=== PATIENT | male | born 1945 | race Caucasian/White ===

== ENCOUNTER 2020-07-19 19:37 | Observation (INO) ==
[2020-07-19 20:16] LABS: Basophils # 0.1 10*3/uL (0.0-0.2); Basophils % 1.1 % (0.0-0.8); Eosinophils # 0.4 10*3/uL (0.0-0.87); Eosinophils % 4.6 % (0.00-10.9); Hematocrit 49.2 VOL% (42.0-52.0); Hemoglobin 17.4 GM/DL (14.0-18.0); Immature Granulocytes % 0.4 %; Immature Granulocytes Absolute 0.03 #; Lymphocytes # 1.6 10*3/uL (1.4-4.0); Lymphocytes % 19.3 % (21.2-54.2); Mean Corpuscular HGB Conc 35.4 GM/DL (32-36); Mean Corpuscular Volume 89.9 FL (87-102); Mean Platelet Volume 9.8 FL (9.6-12.0); Monocytes % 7.5 % (1.7-12.7); Neutrophils % 67.1 % (38.7-73.9); Platelet Count 174 T/CUMM (130-400); Red Blood Count 5.47 MC/CUMM (3.8-5.5); White Blood Count 8.4 T/CUMM (4-12)
[2020-07-19 20:29] LABS: Calcium 9.2 MG/DL (8.5-10.1); Osmolality,Calculated 277.4 MOS/KG (273-304); Potassium 4.3 MMOL/L (3.5-5.1)
[2020-07-20 00:15] LABS: INR 1.1; PT Patient Result 11.5 SECS (9.8-11.9); Partial Thromboplastin Time 26.4 SECS (23.9-33.8)
[2020-07-20] MEDS ORDERED: PROMETHAZINE 25 MG TABLET PO PRN (00:47)
[2020-07-20] MEDS ORDERED: SIMETHICONE CHEW 125 MG TABLET PO PRN (00:47)
[2020-07-20] MEDS ORDERED: ZALEPLON 5 MG CAPSULE PO PRN (00:47)
[2020-07-20] MEDS ORDERED: BISACODYL 5 MG TABLET PO PRN (00:47)
[2020-07-20] MEDS ORDERED: ALBUTEROL 2.5 MG/3 ML NEB RESP TX PRN (00:47)
[2020-07-20] MEDS ORDERED: ACETAMINOPHEN 325 MG TABLET PO PRN (00:47)
[2020-07-20] MEDS ORDERED: diphenhydrAMINE CAP 25 MG CAPSULE PO PRN (00:47)
[2020-07-20] MEDS ORDERED: DEXTROSE 50% 25 GM/50 ML VIAL IV PRN (00:47)
[2020-07-20] MEDS ORDERED: NICOTINE 21 MG/24 HR PATCH TRANSDERM PRN (00:47)
[2020-07-20] MEDS ORDERED: GLUCAGON 1 MG VIAL IM PRN (00:47)
[2020-07-20] MEDS ORDERED: ONDANSETRON 4 MG/2 ML VIAL IV PRN (00:47)
[2020-07-20] MEDS ORDERED: MORPHINE 4 MG/1 ML VIAL IV PRN (00:47)
[2020-07-20] MEDS ORDERED: CALCIUM CARBONATE CHEW 500 MG TABLET PO PRN (00:47)
[2020-07-20] MEDS ORDERED: guaiFENesin/DM ER 600-30 MG TABLET PO PRN (00:47)
[2020-07-20] MEDS ORDERED: hydrALAZINE 20 MG/1 ML VIAL IV PRN (00:47)
[2020-07-20] MEDS ORDERED: ALUMINUM/MAGNES/SIMETH MAX STR 30 ML UDCUP PO PRN (00:47)
[2020-07-20] MEDS ORDERED: NITROGLYCERIN SL 0.4 MG TABLET SL PRN (00:51)
[2020-07-20] MEDS ORDERED: ENOXAPARIN 40 MG/0.4 ML SYRINGE SUBCUT SCH (01:00)
[2020-07-20 04:12] LABS: Basophils # 0.1 10*3/uL (0.0-0.2); Basophils % 1.1 % (0.0-0.8); Eosinophils # 0.4 10*3/uL (0.0-0.87); Eosinophils % 4.9 % (0.00-10.9); Hematocrit 44.4 VOL% (42.0-52.0); Hemoglobin 15.3 GM/DL (14.0-18.0); Immature Granulocytes % 0.3 %; Immature Granulocytes Absolute 0.02 #; Lymphocytes # 1.5 10*3/uL (1.4-4.0); Lymphocytes % 19.1 % (21.2-54.2); Mean Corpuscular HGB Conc 34.5 GM/DL (32-36); Mean Corpuscular Volume 91.4 FL (87-102); Mean Platelet Volume 9.8 FL (9.6-12.0); Monocytes % 8.5 % (1.7-12.7); Neutrophils % 66.1 % (38.7-73.9); Platelet Count 153 T/CUMM (130-400); Red Blood Count 4.86 MC/CUMM (3.8-5.5)
[2020-07-20 04:32] LABS: Calcium 9.1 MG/DL (8.5-10.1); Osmolality,Calculated 278.5 MOS/KG (273-304); Potassium 3.8 MMOL/L (3.5-5.1)
[2020-07-20 04:35] LABS: Risk Ratio 2.21
[2020-07-20] MEDS ORDERED: MAGNESIUM SULF RIDER 2 GM in PREMIX 1 EACH IV PRN (08:22)
[2020-07-20] MEDS ORDERED: POTASSIUM CHLORIDE RIDER 10 MEQ in PREMIX 1 EACH IV PRN (08:22)
[2020-07-20] MEDS ORDERED: ASPIRIN 325 MG TABLET PO SCH (09:00)
[2020-07-20] MEDS: MULTIVITAMIN (CENTRUM) TABLET PO SCH (09:32)
[2020-07-20] MEDS: ASPIRIN EC 81 MG TABLET PO SCH (09:32)
[2020-07-20] MEDS: ROSUVASTATIN 20 MG TABLET PO SCH (09:33)
[2020-07-20] MEDS: amLODIPine 10 MG TABLET PO SCH (09:33)
[2020-07-20] MEDS: PANTOPRAZOLE 40 MG TABLET PO SCH (09:33)
[2020-07-20] MEDS: CHOLECALCIFEROL 1,000 UNIT TABLET PO SCH (09:33)
[2020-07-20] MEDS ORDERED: ENOXAPARIN 80 MG/0.8 ML SYRINGE SUBCUT ONE (12:00)
[2020-07-20] MEDS ORDERED: ATORVASTATIN 40 MG TABLET PO SCH (21:00)
[2020-07-21] MEDS: SODIUM CHLORIDE 0.45% 1,000 ML IV SCH ×3 (02:30→15:32)
[2020-07-21 05:58] LABS: Basophils # 0.1 10*3/uL (0.0-0.2); Basophils % 1.2 % (0.0-0.8); Eosinophils # 0.4 10*3/uL (0.0-0.87); Eosinophils % 6.5 % (0.00-10.9); Hematocrit 43.3 VOL% (42.0-52.0); Hemoglobin 14.8 GM/DL (14.0-18.0); Immature Granulocytes % 0.3 %; Immature Granulocytes Absolute 0.02 #; Lymphocytes # 1.8 10*3/uL (1.4-4.0); Lymphocytes % 27.2 % (21.2-54.2); Mean Corpuscular HGB Conc 34.2 GM/DL (32-36); Mean Corpuscular Volume 92.9 FL (87-102); Mean Platelet Volume 10.1 FL (9.6-12.0); Neutrophils % 54.8 % (38.7-73.9); Platelet Count 149 T/CUMM (130-400); Red Blood Count 4.66 MC/CUMM (3.8-5.5); Red Cell Distribution Width 11.9 % (9.3-17.3); White Blood Count 6.4 T/CUMM (4-12)
[2020-07-21 06:26] LABS: Calcium 8.7 MG/DL (8.5-10.1); Osmolality,Calculated 280.3 MOS/KG (273-304); Potassium 3.8 MMOL/L (3.5-5.1)
[2020-07-21] MEDS ORDERED: diphenhydrAMINE CAP 50 MG CAPSULE PO ONE (07:30)
[2020-07-21] MEDS ORDERED: DIAZEPAM 5 MG TABLET PO ONE (07:30)
[2020-07-21] MEDS: ROSUVASTATIN 20 MG TABLET PO SCH ×2 (07:40→10:38)
[2020-07-21] MEDS: amLODIPine 10 MG TABLET PO SCH ×2 (07:41→10:38)
[2020-07-21] MEDS: ASPIRIN EC 81 MG TABLET PO SCH ×2 (07:41→10:38)
[2020-07-21] MEDS: CHOLECALCIFEROL 1,000 UNIT TABLET PO SCH ×2 (07:42→10:39)
[2020-07-21] MEDS: PANTOPRAZOLE 40 MG TABLET PO SCH ×2 (07:42→10:39)
[2020-07-21] MEDS ORDERED: LIDOCAINE 1% 20 ML VIAL ONE (08:34)
[2020-07-21] MEDS ORDERED: HEPARIN/NACL 0.9% 2 UNITS/ML 1,000 ML IV ONE (08:34)
[2020-07-21] MEDS ORDERED: HYDROmorphone 2 MG/1 ML VIAL ONE (08:40)
[2020-07-21] MEDS ORDERED: MIDAZOLAM 2 MG/2 ML VIAL ONE (08:40)
[2020-07-21] MEDS: MULTIVITAMIN (CENTRUM) TABLET PO SCH (10:38)
[2020-07-22] MEDS: SODIUM CHLORIDE 0.45% 1,000 ML IV SCH ×3 (04:26→11:06)
[2020-07-22 06:38] LABS: Basophils # 0.1 10*3/uL (0.0-0.2); Basophils % 0.9 % (0.0-0.8); Eosinophils # 0.4 10*3/uL (0.0-0.87); Hematocrit 44.8 VOL% (42.0-52.0); Hemoglobin 15.3 GM/DL (14.0-18.0); Immature Granulocytes % 0.3 %; Immature Granulocytes Absolute 0.02 #; Lymphocytes # 1.5 10*3/uL (1.4-4.0); Lymphocytes % 20.1 % (21.2-54.2); Mean Corpuscular HGB Conc 34.2 GM/DL (32-36); Mean Corpuscular Volume 91.4 FL (87-102); Monocytes % 7.9 % (1.7-12.7); Neutrophils % 64.8 % (38.7-73.9); Platelet Count 146 T/CUMM (130-400); Red Cell Distribution Width 11.9 % (9.3-17.3); White Blood Count 7.4 T/CUMM (4-12)
[2020-07-22 06:52] LABS: Calcium 9.3 MG/DL (8.5-10.1); Osmolality,Calculated 278.5 MOS/KG (273-304); Potassium 3.5 MMOL/L (3.5-5.1)
[2020-07-22 08:22] VITALS: BP 104/65
[2020-07-22] MEDS: ROSUVASTATIN 20 MG TABLET PO SCH (08:44)
[2020-07-22] MEDS: amLODIPine 10 MG TABLET PO SCH (08:44)
[2020-07-22] MEDS: PANTOPRAZOLE 40 MG TABLET PO SCH (08:44)
[2020-07-22] MEDS: ASPIRIN EC 81 MG TABLET PO SCH (08:45)
[2020-07-22] MEDS: CHOLECALCIFEROL 1,000 UNIT TABLET PO SCH (08:45)
[2020-07-22] MEDS: MULTIVITAMIN (CENTRUM) TABLET PO SCH (08:49)
== END 2020-07-22 11:39 | disposition home or self-care (01) ==
LOC: N.TELES 19:37 → N.ED 19:37 → N.EDINP 19:37
PROVIDERS: ADMIT Internal Medicine; ATTEND Internal Medicine Cardiovascular Disease
PROC: CLCCHCL (ICD-10-PCS; 2020-07-21 08:45)